=== PATIENT | female | born 1985 | race African-American/Black ===

== ENCOUNTER 2022-04-15 08:22 | Emergency (ER) | payer MEDICAID ==
[2022-04-15 08:51] LABS: #Eosinphils 0.1 thou/uL (0.0-0.7); #Lymphocytes 1.9 thou/uL (1.20-3.40); #Monocytes 0.4 thou/uL (0.11-0.59); #Neutrophils 3.7 thou/uL (1.40-6.50); %Basophils 0.4 % (0.0-1.0); %Eosinophils 1.3 % (0.0-10.0); %Lymphocytes 31.5 % (21.0-51.0); %Neutrophils 59.8 % (42.0-75.0); Hemoglobin 9.3 g/dL (12.0-16.0); Mean Corpuscular Hemoglobin 24.2 pg (27.0-31.0); Mean Corpuscular Volume 75.6 fl (78.0-98.0); Mean Platelet Volume 10.8 fL (7.4-10.4); Platelet Count 304 10x3/uL (130-400); RBC Distribution Width 18.8 % (11.5-14.5); Red Blood Cell (RBC) Count 3.84 mill/uL (4.20-5.40); White Blood Cell (WBC) Count 6.1 10x3/uL (4.8-10.8)
[2022-04-15 09:13] LABS: ALT (SGPT) 15 U/L (8-55); AST (SGOT) 18 U/L (5-34); Albumin 3.7 g/dL (3.5-5.0); Alkaline Phosphatase 38 U/L (40-110); Anion Gap 12 mmol/L (10-20); BUN (Urea Nitrogen) 7 mg/dL (7.0-18.7); Bilirubin, Total 0.3 mg/dL (0.2-1.2); Calc. Creatinine Clearance 0 mL/min (70-130); Carbon Dioxide 18 mmol/L (22-29); Chloride 108 mmol/L (98-107); Estimated GFR 114; Globulin 3.7 g/dL (2.4-3.5); Glucose 101 mg/dL (70-105); Potassium 3.6 mmol/L (3.5-5.1); Protein, Total 7.4 g/dL (6.0-8.3); Sodium 134 mmol/L (136-145)
== END 2022-04-15 10:50 | disposition home or self-care (01) ==
LOC: ERS 08:22
DX: O20.0 Threatened abortion (principal); O24.311 Unspecified pre-existing diabetes mellitus in pregnancy, first trimester; O10.911 Unspecified pre-existing hypertension complicating pregnancy, first trimester; Z3A.12 12 weeks gestation of pregnancy
CPT/HCPCS: 36415; 80053; 84702; 85025; 86900; 86901